=== PATIENT | female | born 1995 | race Caucasian/White ===

== ENCOUNTER 2017-10-01 08:06 | Inpatient (IN) | payer BC ==
[2017-10-01 09:48] LABS: Hematocrit 30 % (35-47); Mean Corpuscular HGB Conc 33 g/dl (31-36); Mean Corpuscular Hemoglobin 28 pg (27-31); Mean Corpuscular Volume 83 fL (80-97); Mean Platelet Volume 8 um3 (7.4-10.4); Red Blood Count 3.61 10^6/ul (4.0-5.4); Red Cell Distribution Width 15 % (10.5-15); White Blood Count 9.7 10^3/ul (3.5-10.8)
[2017-10-01] MEDS ORDERED: Penicillin G Potassium IV* 5,000,000 UNITS in NS 0.9% 100 ML* 100 ML IVPB ONE (11:00)
[2017-10-01] MEDS ORDERED: Oxytocin in LR* 20 UNITS/1,000 ML BAG IVPB ONE (11:13)
[2017-10-01] MEDS ORDERED: Oxytocin in LR* 20 UNITS/1,000 ML BAG IVPB SCH (12:00)
[2017-10-01] MEDS ORDERED: OBEPIDURAL* 250 ML ONE (13:19)
[2017-10-01] MEDS ORDERED: fentaNYL* 50 MCG/ML 2 ML VIAL (100 MCG VIAL) ONE (13:19)
[2017-10-01] MEDS ORDERED: Famotidine TAB* 20 MG PO PRN (14:09)
[2017-10-01] MEDS ORDERED: Sodium Citrate/Citric Acid* 15 ML UDC PO PRN (14:09)
[2017-10-01] MEDS ORDERED: Phenylephrine IV* 40 MCG/ML 10 ML SYRINGE IV PUSH PRN ×2 (14:09)
[2017-10-01] MEDS ORDERED: OBEPIDURAL* 250 ML EPIDURAL SCH (15:00)
[2017-10-01] MEDS ORDERED: Lidocaine 1% MPF* 2 ML VIAL ONE (15:07)
[2017-10-01] MEDS ORDERED: Penicillin G Potassium IV* 2,500,000 UNITS in NS 0.9% 100 ML* 100 ML IVPB SCH (16:00)
[2017-10-01] MEDS ORDERED: Dibucaine 1% 28.35 GM TUBE PR PRN (18:25)
[2017-10-01] MEDS ORDERED: Glycerin ADULT SUPP PR PRN (18:25)
[2017-10-01] MEDS ORDERED: Witch Hazel PAD* JAR TOPICAL PRN (18:25)
[2017-10-01] MEDS ORDERED: Simethicone TAB* 80 MG TAB.CHEW PO SCH (21:00)
[2017-10-01] MEDS: Ibuprofen TAB* 600 MG PO PRN (21:47)
[2017-10-01] MEDS: Docusate CAP* 100 MG PO SCH (21:47)
[2017-10-02] MEDS: Ibuprofen TAB* 600 MG PO PRN ×4 (04:06→22:41)
[2017-10-02] MEDS: Acetaminophen TAB* 325 MG PO PRN ×5 (05:54→22:41)
[2017-10-02 07:31] LABS: Hematocrit 30 % (35-47); Hemoglobin 9.9 g/dl (12.0-16.0); Mean Corpuscular HGB Conc 33 g/dl (31-36); Mean Corpuscular Hemoglobin 28 pg (27-31); Mean Corpuscular Volume 84 fL (80-97); Mean Platelet Volume 8 um3 (7.4-10.4); Red Blood Count 3.51 10^6/ul (4.0-5.4); Red Cell Distribution Width 15 % (10.5-15); White Blood Count 9.6 10^3/ul (3.5-10.8)
[2017-10-02] MEDS: Docusate CAP* 100 MG PO SCH ×3 (08:58→22:41)
[2017-10-02] MEDS ORDERED: Ferrous Gluconate TAB* 324 MG TAB PO SCH (09:00)
[2017-10-03] MEDS: Ibuprofen TAB* 600 MG PO PRN ×3 (04:17→15:34)
[2017-10-03] MEDS: Acetaminophen TAB* 325 MG PO PRN (04:17)
[2017-10-03] MEDS: Docusate CAP* 100 MG PO SCH ×2 (07:55→14:59)
[2017-10-03 08:05] VITALS: BP 129/76
== END 2017-10-03 16:07 | disposition home or self-care (01) | DRG 560 ==
LOC: MCHOBOUT 08:06 → MCHOB 11:01
PROVIDERS: ADMIT Obstetrics & Gynecology; ATTEND Obstetrics & Gynecology
PROC: 4A1HX4Z Monitoring of Products of Conception, Cardiac Electrical Activity, External Approach (ICD-10-PCS; principal; 2017-10-01)
PROC: 10907ZC Drainage of Amniotic Fluid, Therapeutic from Products of Conception, Via Natural or Artificial Opening (ICD-10-PCS; 2017-10-01)
PROC: 10E0XZZ Delivery of Products of Conception, External Approach (ICD-10-PCS; 2017-10-01)
PROC: 3E033VJ Introduction of Other Hormone into Peripheral Vein, Percutaneous Approach (ICD-10-PCS; 2017-10-01)
DX: O48.0 Post-term pregnancy (principal); O99.824 Streptococcus B carrier state complicating childbirth; Z3A.40 40 weeks gestation of pregnancy; Z37.0 Single live birth
CPT/HCPCS: 36415; 85025; 85027; 86850; 86870; 86880; 86900; 86901; A9270-GY; J2540; J3010